=== PATIENT | male | born 1950 | race African-American/Black ===

== ENCOUNTER 2017-01-03 03:22 | Inpatient (IN) ==
[2017-01-03 04:20] LABS: BASO% 0.5 % (0.0-0.8); EOS# 0.06 X1000 (0.0-0.7); EOS% 0.7 % (0.0-10.0); HEMOGLOBIN 4.9 g/dL (14.0-18.0); IMM GRAN# 0.03 X1000 (0.0-0.04); IMM GRAN% 0.4 % (0.0-0.5); LYMPH# 1.42 X1000 (1.2-3.4); LYMPH% 16.9 % (20.5-51.1); MANUAL DIFF NEEDED? NO; MCH 29.7 PG (27-31); MCHC 32.7 g/dL (33-37); MCV 90.9 FL (81-99); MONO% 7.1 % (1.7-9.3); MPV 10.4 FL (7.4-10.4); NEUT% 74.4 % (42.2-75.2); PLT 166 X1000 (130-400); RBC 1.65 XMIL (4.7-6.1); RETIC% 5.38 % (0.8-2.1); RETIC-HE 36.6 PG (28.2-36.6)
--- NOTE | 2017-01-03 04:39 | PROVIDER DOCUMENTATION ---
HPI-General Adult - General Chief Complaint: Weakness Stated Complaint: CHEST PAIN Time Seen by Provider: 01/03/17 04:04 Source: patient - History of Present Illness -Gen Adult Nature of Presenting Problems: 66 yo AAM with know sickle cell trait came to ER due to profoound weakness such that he is SOB even going to from bed to bathroom. He has had some coffee ground emesis a few weeks ago and some dark but not black stoolsas well. He has a cousin with sickle thal. Location of Pain/Injury: reports: none Quality of Pain: reports: none Onset/Duration: reports: other (see HPI) Timing: reports: still present Context/Activities at Onset: reports: light activity Modifying Factors: improves with: nothing Associated Symptoms: reports: denies symptoms Similar Symptoms Previously?: No Recently seen or treated by another doctor?: No - Sickle Cell Pain Related Context Sickle Cell Pain Location: reports: none Review of Systems - Adult - REVIEW OF SYSTEMS - ADULT Constitutional: reports: fatique Eyes: reports: no symptoms reported Ears, Nose, Mouth & Throat: reports: no symptoms reported Cardiovascular: reports: see HPI, heart murmur Respiratory: reports: see HPI Gastrointestinal: denies: abdominal pain, hematemesis, constipation, diarrhea, difficulty swallowing, frequent heartburn, rectal bleeding Genitourinary: reports: no symptoms reported Musculoskeletal: reports: no symptoms reported Integumentary: reports: see HPI Neurological: reports: no symptoms reported Psychiatric: reports: no symptoms reported Endocrine: reports: no symptoms reported Hematologic/Lymphatic: reports: no symptoms reported Allergic/Immunologic: reports: no symptoms reported Past History - Adult - PAST MEDICAL HISTORY-ADULT Review of Records: reports: Old Records Reviewed, Nursing Assessment Review Major Childhood Illnesses: reports: other (sickle trait) Cardiovascular: reports: arrhythmia, other (cardiac ablation) Respiratory: reports: denies history Gastrointestinal: reports: denies history Genitourinary: reports: denies history Neurological: reports: denies history Endocrine/Immune: reports: other (Insulinoma resected many years ago) Sickle Cell Genotype:: SThal - PRIOR SURGERIES/PROCEDURES Surgical/Procedure History: reports: colonoscopy - IMMUNIZATION STATUS Childhood Immunizations: UTD - FAMILY HISTORY Family History: reviewed, not pertinent - SOCIAL HISTORY Smoking: non-smoker Occupation: Physician Physical Exam-General - PHYSICAL EXAM-ADULT Initial Vital Signs Reviewed: Yes - CONSTITUTIONAL General Appearance: alert, no apparent distress, anxious, other (profoundly pale ) - EYES Eyes: PERRL/EOMI, pink conjunctivae - HEAD, EARS, NOSE, MOUTH & THROAT HENMT: normocephalic/atraumatic, moist mucous membranes, normal ENT inspection - NECK Neck: non-tender, full range of motion - RESPIRATORY Respiratory: chest non-tender, lungs clear, normal breath sounds - CARDIOVASCULAR Cardiovascular: normal peripheral pulses, regular rate, rhythm, systolic murmur - GASTROINTESTINAL (ABDOMEN) Abdominal Exam: normal bowel sounds, non tender - LYMPHATIC Lymphatic: no adenopathy - MUSCULOSKELETAL Back Exam: no CVA tenderness Extremity: normal range of motion, non-tender - SKIN Integumentary: normal color, normal turgor - NEUROLOGIC Neurologic: grossly normal - PSYCHIATRIC Psych/Mental Status: normal mood/affect Progress - PLAN OF CARE/RESULTS Progress/Plan/Lab Results: Vital Signs - 8 hr 01/03/17 03:27 01/03/17 03:54 Temperature 98 F Pulse Rate 81 88 Respiratory Rate 18 14 Blood Pressure 153/61 147/73 O2 Sat by Pulse Oximetry 100 96 Laboratory Results - last 24 hr 01/03/17 03:50 WBC 8.41 RBC 1.65 L Hgb 4.9 L* Hct 15.0 L MCV 90.9 MCH 29.7 MCHC 32.7 L RDW Std Deviation 13.5 Plt Count 166 MPV 10.4 Immature Gran % (Auto) 0.4 Neut % (Auto) 74.4 Lymph % (Auto) 16.9 L Motley % (Auto) 7.1 Eos % (Auto) 0.7 Baso % (Auto) 0.5 Immature Gran # (Auto) 0.03 Neut # (Auto) 6.26 Lymph # (Auto) 1.42 Motley # (Auto) 0.60 H Eos # (Auto) 0.06 Baso # (Auto) 0.04 Percent Retic 5.38 H Retic Hgb Equivalent 36.6 Orders Category Date Time Status Transfuse .Give-Transfuse Care 01/03/17 04:25 Active CBC WITH ELECTRONIC DIFF [HEME] Stat Lab 01/03/17 03:50 Completed CK PROFILE [SP CHEM] Stat Lab 01/03/17 03:50 Received COMPREHENSIVE METABOLIC PANEL [CHEM] Stat Lab 01/03/17 03:50 Received FERRITIN Stat Lab 01/03/17 03:50 Received FOLATE Stat Lab 01/03/17 03:50 Received HEMOGLOBIN ELECTROPHORESIS [MOORE] Stat Lab 01/03/17 03:50 Received LRPC (RED CELLS) [BBK] Stat Lab 01/03/17 03:50 Received RETIC COUNT [HEME] Stat Lab 01/03/17 03:50 Completed TROPONIN T Stat Lab 01/03/17 03:50 Received TYPE & SCREEN [BBK] Stat Lab 01/03/17 03:50 Received UIBC W TOTAL IRON [CHEM] Stat Lab 01/03/17 03:50 Received VITAMIN B12 Stat Lab 01/03/17 03:50 Received EKG [EKG] Stat Ther 01/03/17 03:23 Ordered Result Diagrams: 01/03/17 03:50 01/03/17 03:50 - XRAY 1 XRAY: Left XRAY Study: Hip Impression: Abnormal (fem nk fx) - CONSULTS/PCP/HOSPITALIST Notification #1 *Consult/PCP/Hospitalist*: Dr srivastava Time Discussed: 05:17 Consult Disposition: Will see in ED, Admit Departure - Departure Date of Disposition Decision: 01/03/17 Time of Disposition Decision: 05:18 DIAGNOSIS: Anemia Qualifiers: Anemia type: iron deficiency Iron deficiency anemia type: chronic blood loss Qualified Code(s): D50.0 - Iron deficiency anemia secondary to blood loss ( chronic) Disposition: ADMITTED INPATIENT 09 Certified Medical Emergency: Emergent Condition: Good Referrals and Follow-Ups: None,PCP [Primary Care Provider] - - Critical Care Note This patient required my direct & personal management of CC.: No Attestation - Physician/ MARIA ESTHER Attestation Patient care was provided by Advanced Practice Provider:: No The physician spent face to face time with patient:: Yes Advanced Practice Provider documentation review:: Supervising physician onsite and consulted in the evaluation and care of this patient. The physician did have a face to face encounter with the patient.
[2017-01-03 04:52] LABS: IRON SATURATION 29 %; TIBC 210 ug/dL; TOTAL IRON 60 ug/dL (53-167); UNBOUND IRON 150 ug/dL (112-346)
[2017-01-03 04:54] LABS: AGAP 11; ALKALINE PHOSPHATASE 34 U/L (32-122); BUN 58 mg/dL (8-22); CHLORIDE 105 mmol/L (98-107); CK PROFILE 59 U/L (24-204); COSMO 303; GOT 9 U/L (10-34); GPT 8 U/L (10-44); POTASSIUM 3.6 mmol/L (3.5-5.1); SODIUM 142 mmol/L (136-145); TCO2 26 mmol/L (25-35); TOTAL BILIRUBIN 0.15 mg/dL (0.20-1.00); TOTAL PROTEIN 5.6 g/dL (6.3-8.3)
[2017-01-03] MEDS ORDERED: NS 1,000 ML ONE (05:06)
[2017-01-03] MEDS ORDERED: SODIUM CHLORIDE 0.9% INJ ONE (05:52)
[2017-01-03] MEDS ORDERED: PROTONIX IV ONE (05:52)
[2017-01-03] MEDS ORDERED: TYLENOL PO ONE (06:01)
[2017-01-03 06:13] LABS: INR 1.06; PROTIME 11.2 Seconds (9.2-11.7)
[2017-01-03 06:30] LABS: PTT 18.7 Seconds (22.0-36.0)
--- NOTE | 2017-01-03 07:06 | EKG Report ---
Test Performed on : 01/03/2017 03:40:30 AM Test Reason : weakness Blood Pressure : / mmHG Vent. Rate : 083 BPM Atrial Rate : 083 BPM P-R Int : 168 ms QRS Dur : 090 ms QT Int : 414 ms P-R-T Axes : 029 -20 050 degrees QTc Int : 486 ms Normal sinus rhythm. Minimal voltage criteria for LVH, may be normal variant Nonspecific ST abnormality Prolonged QT Abnormal ECG No previous ECGs available Unconfirmed Result
[2017-01-03] MEDS ORDERED: ZOFRAN IV PRN (07:36)
[2017-01-03] MEDS: HUMALOG SUBQ SCH ×3 (08:19→16:25)
[2017-01-03] MEDS: TRANDATE PO SCH ×2 (08:30→22:41)
--- NOTE | 2017-01-03 08:33 | HISTORY AND PHYSICAL ---
PRIMARY CARE PROVIDER: Dr. Badillo in [place]. CHIEF COMPLAINT: Weakness. 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 He also reports that he has had a pale appearance to his skin as well. He reports that initially 6 weeks ago, he did notice a few episodes of dark stools, though has not had any since that time. He states that yesterday, he did have 1 episode of vomiting for which had a coffee-ground appearance. The patient denies any abdominal pain. He also denies any previous history of any gastrointestinal bleeding or gastrointestinal complications such as ulcers or diverticulitis. He states that though he has not taken any [id number] medications, he does take meloxicam 10 mg daily, and has done so for several years as well as a 325 mg aspirin. He denies any dizziness, lightheadedness, headaches, chest pain, shortness of breath, abdominal pain, diarrhea, dysuria, or urinary frequency. He also denies any fever, body aches, or chills, and denies any increased swelling in his legs, but does report that he wears compression stockings daily to help with this. Upon evaluation in the ER, the patient was found to be very anemic with a hemoglobin of 4.9 and hematocrit of 15. He was also found to have a slightly elevated creatinine of 1.4. Though we do not have any previous labs to compare this, the patient states that his creatinine is not normally elevated and does not have any previous history of kidney disease. At this time , the patient will be admitted for further treatment and evaluation of his anemia and likely upper gastrointestinal bleeding. REVIEW OF SYSTEMS: A 12-point review of systems was conducted with the patient and all were negative except for pertinent positives mentioned above HPI. PAST MEDICAL HISTORY: 1. 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 2. CVA in 1998, with some residual deficits of balance problems. 3. Hypertension. 4. Sickle cell trait. 5. Spinal stenosis. 6. Diabetes mellitus type 2. 7. History of insulinoma, status post resection. PAST SURGICAL HISTORY: 1. Left total knee replacement. 2. Tonsillectomy as a child. 3. History of insulinoma status post resection. 4. History of 2 abdominal surgeries related to some complications from his previous insulinoma resection. 5. Low back surgery at L4-L5 for spondylosis. SOCIAL HISTORY: The patient is a former smoker, stating that he did formally smoke cigars. He denies any alcohol or illicit drug use. He is . His was at bedside at the time of examination. 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 FAMILY HISTORY: Positive for his mother passing away secondary to rectal cancer. His father had a history of colon cancer and stroke. ALLERGIES: The patient reports allergies to alcohol surgical prep. HOME MEDICATIONS: 1. Telmisartan 80 mg p.o. daily. 2. Singulair 10 mg p.o. daily. 3. Metformin extended release 500 mg 2 p.o. daily. 4. Labetalol 100 mg p.o. b.i.d. 5. Hydrochlorothiazide 25 mg p.o. q.a.m. 6. Ginkgo biloba leaf extract 60 mg p.o. q.a.m. 7. Cartia XT 240 mg p.o. b.i.d. 8. Aspirin 325 mg p.o. q.a.m. DIAGNOSTIC DATA: White blood cell count 8.4, hemoglobin 4.9, hematocrit 15, platelet count is 166,000. PT 11.2, INR 1.06, PTT is 18.7. Sodium 142, potassium 3.6, chloride 105, bicarb 26, BUN is 58, creatinine 1.4 with a GFR greater than 60, glucose 164, calcium 8. Liver function tests were within normal limits. CK 59, troponin less than 0.01. Albumin is 3. EKG showed normal sinus rhythm with a nonspecific ST abnormality and prolonged Q-T at a rate of 83 with a QTc of 486. PHYSICAL EXAMINATION: VITAL SIGNS: Temperature 99.5, heart rate 75, respirations 14, blood pressure 158/77, oxygen saturation 100% nasal cannula at 2 L. 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 He was in no acute distress. He was awake, alert, and able to answer all questions appropriately. He stated that other than feeling weak, he is doing well at this time. HEENT: Head is atraumatic, normocephalic. Pupils are equal, round, and reactive to light, were 3 mm bilaterally and brisk. Sclerae are white. No lesions noted. Subconjunctivae are pale. Oral mucosa is moist. Oropharynx is clear. NECK: Supple. Trachea midline. No carotid bruits noted upon auscultation bilaterally. CARDIOVASCULAR: Patient has normal S1, S2. He also does have a probable 2/6 murmur noted as well. He has a regular heart rate and rhythm. PULMONARY: Patient has symmetrical chest expansion bilaterally. Lung sounds are clear to auscultation bilateral full rolle. ABDOMEN: Soft, nontender, nondistended. Bowel sounds are present in all 4 quadrants. EXTREMITIES: No cyanosis, clubbing, or edema noted. Pulse, motor, and sensory is intact in all extremities. Pedal pulses are 3+ bilaterally. INTEGUMENTARY: Patient's skin is pale, dry, and intact. No lesions or sores noted. NEUROLOGICAL: Patient is alert and oriented x4. Cranial nerves 2-12 are grossly intact. ASSESSMENT AND PLAN: 1. Upper gastrointestinal bleed. We suspect this is upper gastrointestinal bleed given that the patient has previous reported dark stools as well as reported vomiting episode of coffee- grounds emesis. The patient did report prescription medication use of meloxicam and aspirin. He was anemic with a hemoglobin of 4.9 and hematocrit of 15. At this time we have ordered for transfusion of 3 units of packed red blood cells. He has been placed on Protonix 40 mg IV q.12 hours. At this time, he does not have any active vomiting or bowel movements. The patient did request to have Dr. Cardenas for his Gastroenterology consultation if possible. Though stated that if Dr. Cardenas was not able to come in, that he would like to have Dr. Varma in place of him. The patient is hemodynamically stable. Heart rate and blood pressure are within normal limits. At this time, we will await evaluation and further recommendations from Gastroenterology and we will continue to follow closely. 2. Anemia. This is likely secondary to his gastrointestinal bleeding. As previously mentioned, we have ordered for blood transfusions, and we will continue to follow with serial hemoglobin and hematocrit. 3. Acute kidney injury. This is likely secondary to some volume depletion. We will continue with blood transfusions as well as gentle fluid resuscitation with normal saline at 100 mL/h and continue to follow. We will avoid nephrotoxic medications and renally dose medications if necessary. 4. Hypertension. The patient's blood pressure is only mildly elevated. We will monitor this at this time and only implement his regularly prescribed antihypertensive as necessary. We will closely monitor. 5. Diabetes mellitus type 2. Given the patient's acute kidney injury, we will hold his metformin. We have placed him on a sliding scale lispro insulin. He will be placed on the medical floor with telemetry. He will have vital signs q.4 hours. We will closely monitor his hemoglobin and hematocrit levels. He will be N.P.O. DVT prophylaxis provided with SCDs. Further orders and recommendations pending hospital course , diagnostic studies, and physician evaluation. Dictated by LIDIA Garcia for Francoise Riggs MD I did an independent assessment,exam and review of lab work and agree with above findings. BP meds to be used only if SBP>150 to prevent hypotension in the face of bleeding. Other than being pale and having mild epigastric tenderness. I did not find any other major abnormalities on exam. cc: Francoise Riggs MD MTDD
--- NOTE | 2017-01-03 10:25 | PROGRESS NOTE ---
DATE: 01/03/2017 SUBJECTIVE: Patient is resting comfortably in bed. Family members at the bedside. He is not complaining of any abdominal pain, nausea or vomiting. At this moment he is receiving the third unit of PRBC, and he is tolerating that well. He came in with a hemoglobin of 4.9 and, as per the patient, he had a few weeks ago some black stools. Yesterday he had a coffee-grounds emesis. The plan is to get gastroenterology on board and hopefully scope this patient today or tomorrow. If the patient is going to be scoped tomorrow, will start this patient on a liquid diet. Also I will ask for previous records from his primary doctor. He came in with a creatinine of 1.4, and he states that he does not have any previous kidney injury. So, probably this is acute but, like I said, I do not have previous records. OBJECTIVE: Vital Signs: Temperature 99.8 degrees, pulse 60, respiratory rate 16, blood pressure 132/58, oxygen saturation 100% on 2 L of nasal cannula. HEENT: Head normocephalic. No trauma. PERRLA. Neck: Supple. No JVD. No masses. Central trachea. Chest: Clear to auscultation. No wheezing. No rales. Cardiovascular: RRR. Systolic murmur. Abdomen: Soft, protuberant, nontender nondistended. No hepatosplenomegaly. Extremities: No edema. No clubbing. No cyanosis. Neurological examination: The patient is alert and oriented x3. No focal deficits. LABORATORY: WBC 8.4, hemoglobin 4.9, hematocrit 15, platelet 166. Sodium 142, potassium 3.6, chloride 105, bicarbonate 26, BUN 58, creatinine 1.4, glucose 164, calcium 8 and albumin 3. ASSESSMENT AND PLAN: 1. Upper gastrointestinal bleed. We called Dr. Cardenas, who has apparently been his gastroenterology doctor, but he is not going to be able to see him. So, Dr. Varma is on board, and she will evaluate this patient. For now, we will continue with blood transfusion. I am not quite sure if this patient is going to be scoped today or tomorrow, so we will call Dr. Varma. In case of this patient being scoped tomorrow ,I will start this patient on a liquid diet and then on nothing by mouth after midnight. 2. Anemia likely secondary to blood loss. Continue with blood transfusion. At this moment he is getting the third unit of packed red blood cells. 3. Likely acute kidney injury. This is likely secondary to volume depletion. I do believe that after the blood transfusion and gentle fluid resuscitation, he will be better. I will ask for previous records, and we will avoid nephrotoxic medications. 4. Hypertension. I have restarted his labetalol. I am going to hold for now his hydrochlorothiazide and telmisartan given his kidney injury. He is also on diltiazem; I will restart this medication if the blood pressure goes up. Right now it has been around 150 and 130. As per the patient, his blood pressure is around that level. 5. Questionable diabetes. As per the patient, his hemoglobin A1c is 5.2, so this patient does not have diabetes. He decided to start taking metformin at home by himself. cc: George Rosas MD
[2017-01-03] MEDS: CARDIZEM CD PO SCH ×2 (10:33→22:42)
[2017-01-03] MEDS: NS 1,000 ML IV SCH ×2 (11:15→22:42)
[2017-01-03] MEDS ORDERED: TYLENOL PO PRN (12:00)
[2017-01-03 12:44] LABS: BASO% 0.3 % (0.0-0.8); EOS# 0.02 X1000 (0.0-0.7); EOS% 0.2 % (0.0-10.0); HEMATOCRIT 21.2 % (42.0-52.0); HEMOGLOBIN 7.1 g/dL (14.0-18.0); IMM GRAN# 0.03 X1000 (0.0-0.04); IMM GRAN% 0.3 % (0.0-0.5); MANUAL DIFF NEEDED? YES; MCH 29.7 PG (27-31); MCHC 33.5 g/dL (33-37); MCV 88.7 FL (81-99); MONO# 0.91 X1000 (0.11-0.59); MPV 11.3 FL (7.4-10.4); NEUT% 67.2 % (42.2-75.2); PLT 124 X1000 (130-400); RBC 2.39 XMIL (4.7-6.1)
[2017-01-03 12:53] LABS: INR 1.04; PROTIME 10.9 Seconds (9.2-11.7)
[2017-01-03 12:55] LABS: PTT 18.2 Seconds (22.0-36.0)
[2017-01-03 13:08] LABS: LYMPHS 34 % (21-51); MONO 2 % (1-9)
[2017-01-03 13:59] LABS: AGAP 12; BUN 53 mg/dL (8-22); CALCIUM 7.9 mg/dL (8.8-10.2); CHLORIDE 104 mmol/L (98-107); COSMO 299; POTASSIUM 3.2 mmol/L (3.5-5.1); SODIUM 142 mmol/L (136-145); TCO2 26 mmol/L (25-35)
[2017-01-03] MEDS ORDERED: DIPRIVAN 1% ONE (16:50)
[2017-01-03] MEDS ORDERED: FENTANYL ONE (16:53)
[2017-01-03] MEDS ORDERED: PROTONIX 80 MG in NS 80 ML IV ONE (17:59)
[2017-01-03] MEDS ORDERED: PROTONIX IV SCH (18:00)
[2017-01-03 18:12] LABS: HEMOGLOBIN 8.1 g/dL (14.0-18.0)
[2017-01-03] MEDS: PROTONIX 80 MG in NS 80 ML IV SCH (22:41)
[2017-01-03] MEDS: CARAFATE LIQUID PO SCH (22:41)
[2017-01-04 01:29] LABS: HEMATOCRIT 21.6 % (42.0-52.0); HEMOGLOBIN 7.2 g/dL (14.0-18.0)
[2017-01-04] MEDS: CARAFATE LIQUID PO SCH ×4 (01:48→21:22)
[2017-01-04] MEDS: PROTONIX 80 MG in NS 80 ML IV SCH ×4 (05:33→21:29)
--- NOTE | 2017-01-04 05:53 | CONSULTATION ---
DATE OF CONSULTATION: 01/03/2017 REFERRING PHYSICIAN: George Rosas MD PRIMARY CARE PHYSICIAN: Dr. Archie Badillo MD INDICATION FOR CONSULTATION: 1. Melena. 2. Coffee-ground emesis. 3. Hemoglobin of 4.9. 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 Approximately 6 weeks prior to admission, he had 4 days of black stool but now says that resolved. Approximately 1 day prior to admission, he had an episode of coffee-grounds emesis. Because of the progressive weakness, he presented to the emergency room. He admits that he is on meloxicam 10 mg per day and aspirin 325 mg daily. He denies taking other over the counter medications and denies the use of other NSAIDs. Other than the fatigue, he reports no other symptoms. He does wear daily compression stockings due to lower extremity edema, but states that that has been chronic. In the emergency room, he was found to have a hemoglobin of 4.9 with hematocrit of 15. He was also noted to have a creatinine of 1.4. Because of his GI bleeding and NSAID use, we are asked to participate in his care. It should be noted that his mother from rectal cancer and his father from colon cancer. His last colonoscopy was more than 5 years ago. PAST MEDICAL HISTORY: 1. Cardiac ablation for Parkinson white syndrome. 2. CVA in 1998 with residual balance difficulty. 3. Hypertension. 4. Sickle-cell trait. 5. Spinal stenosis. 6. Diabetes 2. 7. History of insulinoma status post resection. PAST SURGICAL HISTORY: 1. Left total knee replacement. 2. Tonsillectomy. 3. Insulinoma resection with the gastrojejunostomy anastomosis. 4. Two subsequent abdominal surgeries related to complications from his insulinoma resection. 5. Low back surgery at L4-L5 for spondylosis. SOCIAL HISTORY: Remarkable in that he is a former smoker. He previously smoked cigars. He denies alcohol or illicit drug use. 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 FAMILY HISTORY: Remarkable in that his mother from rectal cancer. His father had colon cancer and stroke. MEDICATION ALLERGIES: Alcohol surgical prep. HOME MEDICATIONS: 1. Telmisartan. 2. Singulair. 3. Metformin. 4. Labetalol. 5. Hydrochlorothiazide. 6. Gingko biloba. 7. Cardia XT. 8. Aspirin 325 mg daily. 9. Meloxicam 10 mg daily. REVIEW OF SYSTEMS: Remarkable for lower extremity numbness and tingling when he works for long periods of time. He is currently scheduled to have spine surgery on Saturday at [place]. PHYSICAL EXAMINATION: General: He is in no acute distress. Vital Signs: His blood pressure is 132/58, pulse is 60, respirations 16, and temperature of 99.8 degrees. HEENT: Negative for jaundice. His oropharyngeal mucosa membranes are unremarkable. His conjunctivae are pale. Neck: Supple. Pulmonary: Lungs are clear to auscultation with normal expiratory effort. Cardiovascular: Reveals regular rate and rhythm with a 2-3/6 systolic murmur in the anterior left substernal border. Abdomen: Reveals normoactive bowel sounds. The abdomen is soft, nontender with no rebound or guarding. Extremities: Bilaterally are negative for cyanosis, clubbing, or edema. He has normal pedal pulses. Skin: Pale but dry and intact. Neurologic: There is no focal deficit. OBJECTIVE DATA: Reveals an admission hemoglobin of 4.9 with hematocrit of 15.0 and a white count of 8.41. He had 166,000 platelets. Post 3 units of packed red blood cells, his hemoglobin is 7.1 with hematocrit of 21.2 and a white count of 9.08. He has 124,000 platelets. PT is 10.9 with an INR of 1.04 and a PTT of 18.2. His sodium is 142, potassium 3.6, chloride 105, CO2 26, BUN 58, creatinine 1.4 with a glucose of 164. Calcium is 8, total bilirubin 0.15, AST 9, ALT 8, alkaline phosphatase 34, CK 59. Troponin less than 0.010. Total protein 5.6 and albumin 3.0. His iron is 60 but his ferritin is 14. His vitamin B12 is 837 with a folic acid of 10.8. IMPRESSION: 1. Coffee-ground emesis. 2. Melena. 3. NSAIDs use. 4. Family history of colon cancer. 5. Family history of rectal cancer. RECOMMENDATIONS: 1. After receiving 3 units of packed red blood cells, his hemoglobin is 7.1, with hematocrit of 21.2. Prior to endoscopic intervention, I would transfuse one additional unit of blood and check a repeat CBC following the transfusion. 2. We will place the patient on the schedule for an EGD today. Please keep him NPO. 3. If the EGD is negative or the patient does not correct post transfusion, he will require a colonoscopy this admission in light of his parent's history of colon and rectal cancer. That decision will be based on his response to blood transfusion as well as his endoscopic findings. 4. Patient is currently on Protonix 40 mg IV q.12 hours. I would transition his drug therapy to a Protonix drip for 72 hours. 5. Postprocedure, I anticipate that he will need Carafate 1 g 4 times a day. I will finalize the decision once we performed endoscopy. 6. The patient is scheduled to undergo surgery at [place] on Saturday. I strongly recommend that he postpone his surgery until he has recovered from his current GI bleeding unless his surgeon feels that the surgery is imperative to prevent permanent neurologic damage. 7. Additional recommendations to follow based on his endoscopic findings. 8. Consent was discussed and multiple questions were answered. cc: MD Dr. Archie Evans MD Omar J. Sosa-Chirinos, MD
--- NOTE | 2017-01-04 05:53 | OPERATIVE NOTE ---
PROCEDURE DATE: 01/03/2017 REFERRING PHYSICIAN: George Rosas MD PRIMARY CARE PROVIDER: Archie Badillo MD INDICATIONS FOR PROCEDURE: 1. GI bleed. 2. Coffee-ground emesis. 3. Melena. 4. NSAID use. 5. Family history of rectal cancer. 6. Family history of colon cancer. PROCEDURE PERFORMED: 1. Esophagogastroduodenoscopy with control of bleeding. 2. Esophagogastroduodenoscopy with biopsy. CONSENT: Informed consent was obtained from the patient prior to the procedure. The risks, benefits, and alternatives were discussed with the patient, his and their daughter. MEDICATION: The patient received monitored anesthesia care. PERFORMING PHYSICIAN: Faiza Varma MD ASSISTANTS: 1. ST Renny 2. Cassandra Zapien RN 3. Arielle Kapoor CRNA 4. Abner Benz MD (anesthesia) COMPLICATIONS: There were no complications. ESTIMATED BLOOD LOSS: Less than 1-2 mL. SPECIMENS REMOVED: 1. Duodenal biopsy. 2. Gastric polyp biopsy. 3. Gastric mucosa biopsy. FINDINGS: After sedation was achieved, the upper endoscope was inserted to the mid jejunum. The hypopharynx appeared endoscopically normal. The tubular esophagus was normal except there were prominent esophageal veins. The GE junction appeared irregular at 40 cm. There was a small tongue of salmon-colored mucosa that was less than 1 cm in size. There were also streaks of erosions that were less than 0.5 cm consistent with grade A erosive esophagitis. Upon intubating the gastric lumen, there was greater than 300 mL of retained bilious gastric secretions. Post evacuation, there was diffuse erosive gastritis but no active bleeding. Biopsies were taken of the gastric mucosa. In the mid gastric body, there was a gastrojejunostomy with a 10-15 mm anastomotic ulcer on the jejunal surface. Although it was not actively bleeding at the time of insertion, with insufflation, there was oozing from the edges as well as from the center. Cautery was performed with the black wire and hemostasis was achieved. In the [place] stomach, the antrum was in continuity with the remainder of the stomach. There were pre-pyloric polyps that ranged in size from 5-9 mm. Biopsies were taken. The pylorus appeared endoscopically normal. In the 1st and 2nd portion of the duodenum, the mucosa appeared normal. Biopsies were taken. The scope was then retracted into the gastric lumen and retroflexed view was performed. Again there was greater than 300 mL of fluid that was evacuated. Other than the aforementioned erosive gastritis, there were no other findings. After the exam was complete, the lumen was decompressed and the scope was removed without incident. The scope was then inserted into the gastrojejunostomy. The efferent and afferent lumen of the jejunum appeared endoscopically normal after approximately 10 cm from the anastomotic ulcer. There were no other lesions found. The lumen was decompressed and the scope was removed without incident. IMPRESSION: 1. Prominent esophageal veins. 2. Irregular GE junction at 40 cm. 3. Grade a erosive esophagitis. 4. Gastric retention of secretions with greater than 300 mL of fluid in the fundus. 5. Erosive gastritis status post biopsy. 6. Gastrojejunostomy in the mid gastric body. 7. A 12-15 mm anastomotic ulcer on the jejunal surface with active oozing upon insufflation. The ulcer was cauterized with hemostasis. 8. Normal efferent and afferent jejunal surfaces. 9. Antral polyps times greater than 10 status post biopsy. 10. Normal pylorus. 11. Normal 1st and 2nd portion of the duodenum, status post biopsy. RECOMMENDATION: 1. Await biopsy results. 2. Begin Protonix drip for 72 hours. 3. Begin Carafate suspension 1 g p.o. 4 times a day. 4. I will schedule a gastric emptying study to assess the functional status of his stomach. 5. I will check an abdominal ultrasound to assess the prominent veins and assess for cirrhosis. 6. The patient will need outpatient colonoscopy if he remains hemodynamically stable. However, if his hemoglobin drops or he does not correct appropriately to blood transfusion, it is reasonable to perform a colonoscopy prior to discharge. 7. Given that gastrojejunal ulcer is greater than 10 mm, I will repeat an EGD in 12 weeks to allow for biopsying of the ulcer base and to biopsy the distal esophagus to screen for Zhou's esophagus. 8. I recommend that his surgery be postponed at [place] in the absence of urgent indication. He will discuss this with his surgeon in the morning. cc: MD Archie Evans MD Omar J. Sosa-Chirinos, MD
[2017-01-04 07:34] LABS: MANUAL DIFF NEEDED? NO
[2017-01-04 07:47] LABS: BASO% 0.3 % (0.0-0.8); EOS# 0.06 X1000 (0.0-0.7); EOS% 0.7 % (0.0-10.0); IMM GRAN# 0.02 X1000 (0.0-0.04); IMM GRAN% 0.2 % (0.0-0.5); LYMPH# 1.83 X1000 (1.2-3.4); MCH 30.2 PG (27-31); MCHC 33.3 g/dL (33-37); MCV 90.6 FL (81-99); MONO# 0.91 X1000 (0.11-0.59); MONO% 9.9 % (1.7-9.3); NEUT% 68.9 % (42.2-75.2); PLT 143 X1000 (130-400); RBC 2.65 XMIL (4.7-6.1)
[2017-01-04 07:53] LABS: AGAP 12; ALBUMIN 3.3 g/dL (3.5-5.0); ALKALINE PHOSPHATASE 40 U/L (32-122); BUN 32 mg/dL (8-22); CALCIUM 7.9 mg/dL (8.8-10.2); CHLORIDE 106 mmol/L (98-107); COSMO 294; GOT 27 U/L (10-34); GPT 11 U/L (10-44); POTASSIUM 3.2 mmol/L (3.5-5.1); SODIUM 143 mmol/L (136-145); TCO2 25 mmol/L (25-35); TOTAL BILIRUBIN 0.27 mg/dL (0.20-1.00); TOTAL PROTEIN 5.6 g/dL (6.3-8.3)
[2017-01-04] MEDS ORDERED: KLOR-CON PO ONE (07:58)
[2017-01-04 08:29] LABS: HEMOGLOBIN A1C 4.7 % (4.8-6.0)
[2017-01-04] MEDS ORDERED: HYDROCHLOROTHIAZIDE PO SCH (09:00)
--- NOTE | 2017-01-04 09:39 | Diag Imaging Result Doc PS360 ---
GASTRIC EMPTYING - 01/04/2017 INDICATION: nausea with vomiting TECHNIQUE: 580 uCi of labeled solid food was ingested COMPARISON: None FINDINGS: The T1 half for gastric emptying is 138 minutes. This is mildly delayed. IMPRESSION: Mildly delayed gastric emptying rate compatible with gastroparesis. Electronically signed by Fercho Honeycutt 01/04/2017 9:37 AM
--- NOTE | 2017-01-04 10:31 | Diag Imaging Result Doc PS360 ---
EXAM: US ABDOMEN-COMPLETE HISTORY: prominent veins on EGD, GI bleed, h/o insulinoma TECHNIQUE: Abdominal ultrasound COMMENT: The visualized portions of the head and body the pancreas are within normal limits. The visualized portions of the aorta and inferior vena cava are normal in appearance. Very poor detail is demonstrated in the liver due to the patient's body habitus. The gallbladder contains some echoes with shadowing but is nontender. There is no evidence of biliary dilatation the common bile duct measuring 4 mm. The liver is generally hyperechoic. There is a cyst present in the posterior left hepatic lobe measuring 1.7 cm in greatest dimension. The spleen is not enlarged. The kidneys are without evidence of hydronephrosis. There is antegrade flow in the portal vein. There is a 2.7 cm cyst in the upper pole of the left kidney. No abnormal fluid collections are demonstrated. IMPRESSION: 1. Hepatic steatosis. 2. Cholelithiasis without evidence of cholecystitis. Electronically signed by Davonte Muniz 01/04/2017 10:28 AM
[2017-01-04] MEDS: MICARDIS PO SCH (10:33)
[2017-01-04] MEDS: CARDIZEM CD PO SCH ×2 (10:33→21:22)
[2017-01-04] MEDS: SINGULAIR PO SCH (10:33)
[2017-01-04] MEDS: TRANDATE PO SCH ×2 (10:33→21:22)
[2017-01-04] MEDS: PATIENT'S OWN MED PO SCH (10:36)
--- NOTE | 2017-01-04 16:05 | PROGRESS NOTE ---
DATE: 01/04/2017 SUBJECTIVE: This patient is resting comfortably in bed. Family members at the bedside. He is not complaining of abdominal pain, nausea or vomiting. He had an upper endoscopy done yesterday by Dr. Varma. We will continue following her recommendations. I have restarted most of his home medications. OBJECTIVE: Vital Signs: Temperature 97.9 degrees, pulse 70, respiratory rate 18, blood pressure 121/47, O2 saturation 100% on 2 L of nasal cannula. HEENT: Head normocephalic. No trauma. PERRLA. Neck: Supple. No JVD. No masses. Central trachea. Chest: Clear to auscultation. No wheezing. No rales. Abdomen: Soft, protuberant, he has a big old scar without any lesion. Positive bowel sounds. No signs of peritoneal irritation. Extremities: No edema. No clubbing. No cyanosis. Neurologic: The patient is alert and oriented x3. No focal deficits. LABORATORY: WBC 9.1, hemoglobin 8, hematocrit 24, platelet 143,000, sodium 143, potassium 3.2, chloride 106, bicarbonate 25, BUN 32, creatinine 1.4, glucose 132, calcium 7.9, albumin 3.3. ASSESSMENT AND PLAN: 1. Upper gastrointestinal bleed. This patient had an endoscopy done yesterday that showed prominent esophageal veins, irregular gastroesophageal junction at 40 cm, grade A erosive esophagitis, gastric retention with secretion with greater than 300 mL of fluid in the fundus, erosive gastritis, gastrojejunostomy in the mid gastric body, an anastomotic ulcer of around 12-15 mm on the jejunal surface with active oozing upon insufflation. The ulcer was characterized with hemostasis. Antral polyps. Dr. Varma recommended to place this patient on Protonix drip for 72 hours. We started this patient also on Carafate. He has been scheduled for an abdominal ultrasound and gastric emptying study pending results. Because of his gastrojejunal ulcer greater than 1 cm this patient will need to repeat an EGD in 12 weeks. Will continue following her recommendations. 2. Anemia likely secondary to blood loss. Continue to monitor. Will transfuse as needed. 3. Chronic kidney disease. As per the patient his creatinine is around 1.3. 4. Hypertension. I have restarted his home medications. Blood pressure is under control. 5. Patient is taking metformin even though he does not have diabetes. Will monitor. cc: George Rosas MD
--- NOTE | 2017-01-04 20:28 | PROGRESS NOTE ---
DATE: 01/04/2017 SUBJECTIVE: The patient is feeling better today. Overnight, his hemoglobin trended downward. He reports black stool today. He has not had a screening colonoscopy in over 5 years and has a family history of both colon cancer and colon polyps. He denies chest pain, shortness of breath, nausea, and vomiting. He was found to have mild gastroparesis on gastric emptying study. OBJECTIVE: On examination, his blood pressure is 128/50, pulse 64, respirations 18, temperature of 97.8 degrees. HEENT is negative for jaundice. On pulmonary examination, his lungs are clear. The remainder of his examination was deferred. OBJECTIVE DATA: Hemoglobin of 8.0 with hematocrit of 24.0 and a white count of 9.17. He has 143,000 platelets. Serum chemistries reveal sodium 143, potassium 3.2, chloride 106, CO2 of 25, BUN 32, creatinine 1.4 with a glucose of 132. Calcium is 7.9. His total bilirubin is 0.27, AST 27, ALT 11, alkaline phosphatase 40, total protein 5.6, albumin 3.3. His hemoglobin A1c is 4.7. IMPRESSION: 1. GI bleed secondary to gastric ulcer. 2. Inadequate correction post-transfusion. 3. Melena. 4. Iron deficiency anemia. 5. Family history of colon cancer. 6. Family history of rectal cancer. RECOMMENDATIONS: 1. Over the weekend, I will continue to monitor his hemoglobin and hematocrit, and transfuse as indicated. 2. He should undergo a colonoscopy on Saturday as he did not correct his hemoglobin and continues to have evidence of GI bleeding. I suspect the black stools are related to old blood as he had GI bleeding at the time of admission. If his hemoglobin drops tremendously over the weekend, we are happy to perform a repeat EGD on Saturday. At this time, I plan to perform a colonoscopy alone. 3. The patient is encouraged to increase his protein intake as he has evidence of protein calorie malnutrition. 4. Continue Protonix 40 mg IV q.12 hours. 5. Continue Carafate 1 g q.[address] Boby Mcadams is supervisor scrap preparation for the weekend. Please feel free to contact him if you have any additional questions. cc: MD George Evans MD Willie Askew, MD
[2017-01-05] MEDS: PROTONIX 80 MG in NS 80 ML IV SCH ×4 (01:24→20:45)
[2017-01-05] MEDS: CARAFATE LIQUID PO SCH ×4 (01:47→20:45)
[2017-01-05 06:33] LABS: HEMATOCRIT 20.8 % (42.0-52.0); HEMOGLOBIN 6.9 g/dL (14.0-18.0)
[2017-01-05 06:58] LABS: AGAP 10; BUN 18 mg/dL (8-22); CALCIUM 7.5 mg/dL (8.8-10.2); CHLORIDE 107 mmol/L (98-107); COSMO 289; POTASSIUM 2.7 mmol/L (3.5-5.1); SODIUM 143 mmol/L (136-145); TCO2 26 mmol/L (25-35)
[2017-01-05] MEDS: MICARDIS PO SCH (10:22)
[2017-01-05] MEDS: SINGULAIR PO SCH (10:22)
[2017-01-05] MEDS: KLOR-CON PO SCH ×2 (10:22→20:45)
[2017-01-05] MEDS: CARDIZEM CD PO SCH ×2 (10:22→20:45)
[2017-01-05] MEDS: TRANDATE PO SCH ×2 (10:23→20:45)
[2017-01-05] MEDS: PATIENT'S OWN MED PO SCH (10:23)
--- NOTE | 2017-01-05 10:24 | PROGRESS NOTE ---
DATE: 01/05/2017 SUBJECTIVE: This patient is sitting on a chair. Family members at the bedside. He is not complaining of abdominal pain, nausea, or vomiting. He had upper endoscopy done [address] Varma and, hopefully, he will have a colonoscopy done next Saturday. Today, he has hypokalemia at 2.7 and his hemoglobin is still low at 6.9. He will get 1 unit of PRBC and I will replace his potassium. Also, I will stop the hydrochlorothiazide because this can be the cause of hypokalemia on this patient. OBJECTIVE: Vital Signs: Temperature 99.2 degrees, pulse 75, respiratory rate 16, blood pressure 142/61, oxygen saturation 98% on room air. HEENT: Head normocephalic. No trauma. PERRLA. Neck supple. No JVD. No masses. Central trachea. Chest clear to auscultation. No wheezing. No rales. Abdomen soft, protuberant. He has a big old scar without any lesion. Positive bowel sounds. No signs of peritoneal irritation. Extremities: No edema. No clubbing. No cyanosis. Neurological: The patient is alert and oriented x3. No focal deficits. LABORATORY: Hemoglobin 6.9, hematocrit 20.8. Sodium 143, potassium 2.7, chloride 107, bicarbonate 26. BUN 18, creatinine 1.2, glucose 129. Calcium 7.5. ASSESSMENT AND PLAN: 1. Upper gastrointestinal bleed. This patient had an upper endoscopy done 2 days ago that showed prominent esophageal veins, irregular gastroesophageal junction at 40 cm, also erosive esophagitis, gastric retention with secretion, erosive gastritis, gastrojejunostomy in the mid gastric body and anastomotic ulcer of around 12 to 5 mm on the jejunal surface with active oozing open insufflation. The ulcer was cauterized with hemostasis. Also, antral polyps. For now, we will continue following the recommendations of Dr. Varma. Like I mentioned before, probably this patient will be scoped again next Saturday. He will have a colonoscopy. 2. Anemia likely secondary to blood loss. His hemoglobin is still low at 6.9. I will transfuse this patient with 1 more unit of packed red blood cells. 3. Chronic kidney disease. As per the patient, his creatinine is around 1.3. Today, the creatinine is 1.2. 4. Hypokalemia. I will replace the potassium today and also I will stop his hydrochlorothiazide which can be the cause of hypokalemia. 5. Hypertension, stable. Continue with his medications, except for hydrochlorothiazide. 6. Patient is taking metformin even though he does not have diabetes. He will continue with this treatment at home. cc: George Rosas MD
[2017-01-05] MEDS ORDERED: NS 500 ML ONE (12:04)
--- NOTE | 2017-01-05 13:24 | PROGRESS NOTE ---
DATE: 01/05/2017 SUBJECTIVE: The patient was seen for Dr. Varma. The patient is resting comfortably. He has had one bowel movement today, although it was formed, but it was dark color. He did not have any melenic stool. He is tolerating his diet well. He is resting comfortably. He has been in and out of the bathroom on his own, and has not complained of any dizziness or lightheadedness. Denies any palpitation or chest pain. No other signs of bleeding. OBJECTIVE: Vitals: Vitals today show temperature 99 degrees Fahrenheit, pulse was 74 per minute, breathing at a rate of 18 per minute, and blood pressure was 142/59. HEENT: He has pale conjunctiva. Mouth, buccal mucosa moist. Throat is normal. Abdomen: Slightly distended, but soft and nontender. Bowel sounds are audible. No pedal edema noted. LABS: Labs were reviewed which showed hemoglobin today 6.9, which dropped from 8, and hematocrit has dropped from 24 yesterday to 20.8 today. His BUN is 18, creatinine is 1.2, which has normalized. IMPRESSION AND PLAN: Profound anemia, possibly occult GI bleed. He is scheduled for colonoscopy Saturday. He does not have any signs of active bleeding now requiring immediate attention or intervention. I would continue current management and he is scheduled to receive more packed RBCs. We will continue to recheck hemoglobin and hematocrit and transfuse if necessary and, again, he is scheduled to have colonoscopy with Dr. Varma on Saturday. cc: Boby Mcadams MD
[2017-01-05] MEDS ORDERED: NORCO-7.5 PO PRN (22:05)
[2017-01-06] MEDS: CARAFATE LIQUID PO SCH ×4 (03:05→21:09)
[2017-01-06] MEDS: PROTONIX 80 MG in NS 80 ML IV SCH ×4 (05:27→17:29)
[2017-01-06 06:49] LABS: HEMATOCRIT 25.3 % (42.0-52.0); HEMOGLOBIN 8.4 g/dL (14.0-18.0)
[2017-01-06 07:05] LABS: AGAP 15; BUN 12 mg/dL (8-22); CHLORIDE 106 mmol/L (98-107); COSMO 289; POTASSIUM 3.6 mmol/L (3.5-5.1); SODIUM 144 mmol/L (136-145); TCO2 23 mmol/L (25-35)
[2017-01-06] MEDS ORDERED: SOLU-MEDROL IV ONE (08:31)
[2017-01-06] MEDS: TRANDATE PO SCH ×2 (09:00→21:09)
[2017-01-06] MEDS: MICARDIS PO SCH (09:01)
[2017-01-06] MEDS: COLCRYS PO SCH ×2 (09:01→21:09)
[2017-01-06] MEDS: CARDIZEM CD PO SCH ×2 (09:01→21:09)
[2017-01-06] MEDS: SINGULAIR PO SCH (09:01)
[2017-01-06] MEDS: PATIENT'S OWN MED PO SCH (09:06)
--- NOTE | 2017-01-06 10:35 | PROGRESS NOTE ---
DATE: 01/06/2017 SUBJECTIVE: The patient today is complaining of severe left foot pain. Apparently, he has a past medical history of gout or pseudogout. I discussed the case with the director field services. I am not going to start any NSAIDs. I want to give him a 1 time dose of methylprednisolone and I will start this patient on colchicine. Today, he will receive the dose twice a day but tomorrow, probably I will put this patient on once a day treatment. OBJECTIVE: Vital Signs: Temperature 99.2 degrees, pulse 75, respiratory rate 20, blood pressure 148/57, oxygen saturation 100% on room air. HEENT: Head normocephalic. No trauma. PERRLA. Neck: Supple. No JVD. No masses. Central trachea. Chest: Clear to auscultation. No wheezing. No rales. Abdomen: Soft, nontender, protuberant. He has a big old scar without any lesion. Positive bowel sounds. No signs of peritoneal irritation. Extremities: No edema. No clubbing. No cyanosis. Severe pain upon palpation at the level of his left foot, mostly at the level of the first metatarsophalangeal joint and plantar area. Neurological Examination: No changes. Laboratory: Hemoglobin 8.4, hematocrit 25.3. Sodium 144, potassium 3.6, chloride 106, bicarbonate 23, BUN 12, creatinine 1.2, glucose 134, calcium 8. ASSESSMENT AND PLAN: 1. Upper gastrointestinal bleed. This patient already had an endoscopy done 2 days ago that showed prominent esophageal veins, irregular gastroesophageal junction at 40 cm. Also, erosive esophagitis, gastric retention with secretion, erosive gastritis, gastrojejunostomy in the mid gastric body and anastomotic ulcer of around 12 to 15 mm on the jejunal surface with active oozing upon insufflation. The ulcer was cauterized with hemostasis. Also, antral polyps. For now, we will continue following the recommendation of Dr. Varma and Dr. Mcadams. He will be scoped tomorrow. He will have a colonoscopy. 2. Gout flare. I will give him 1 dose of methylprednisolone intravenous and then I will start this patient on colchicine. Today, he will receive 2 doses of colchicine and tomorrow, probably I will put this patient just on once a day. I also asked for a uric acid level. 3. Anemia, likely secondary to blood loss. Status post multiple units of packed RBCs. The last unit of packed RBCs was given yesterday and the hemoglobin improved from 6.9 to 8.4. 4. Chronic kidney disease. As per the patient, his creatinine is around 1.3. His creatinine has been stable at 1.2. 5. Hypokalemia, resolved today. I had stopped his hydrochlorothiazide yesterday and I gave him a dose of potassium. 6. Hypertension. His blood pressure is a little bit elevated but this patient is complaining of pain. Once this pain is better, I will monitor the blood pressure to see if he needs another blood pressure medication. 7. Patient is taking metformin, even though he does not have diabetes. He will continue with this treatment at home. cc: George Rosas MD
[2017-01-06] MEDS ORDERED: DULCOLAX PO ONE ×2 (14:00→21:00)
--- NOTE | 2017-01-06 14:27 | PROGRESS NOTE ---
DATE: 01/06/2017 SUBJECTIVE: The patient denies any visible black stools or blood in the stool today. He did report a dark stool yesterday. He did not complain of foot pain to me but in the chart by Dr. Nails he is complaining of severe left foot pain. He has a history of gout. They are starting prednisone and holding NSAIDs for now. OBJECTIVE: Vital Signs: Temperature 102.2 degrees, pulse 84, respirations 20, blood pressure 157/69. General: The patient is awake and alert. No acute distress. HEENT: Normocephalic, atraumatic. Pupils equal, round, reactive to light. Respiratory: Lung sounds essentially clear bilaterally. Abdomen: Obese, otherwise soft, positive bowel sounds, nontender. DIAGNOSTIC RESULTS: Laboratory. Hematology. Hemoglobin 8.4, hematocrit 25.3. Chemistry. Sodium 144, potassium 3.6, chloride 106, CO2 of 23, BUN 12, creatinine 1.2, glucose 134, uric acid 7.8, calcium 8.0. ASSESSMENT AND PLAN: 1. Anemia. Patient has had an EGD that showed prominent esophageal veins, esophagitis, gastric retention, erosive gastritis with history of gastrojejunostomy in the midgastric body and anastomotic ulcer. The ulcer was cauterized. He has plans for a colonoscopy tomorrow by Dr. Varma. 2. Gout. He is receiving prednisone and started on colchicine. 3. Chronic kidney disease. 4. Hypertension. 5. Fever. He has orders for a CBC tomorrow. He will start his colon prep this afternoon. Plans for colonoscopy by Dr. Varma tomorrow. Further plans will be made according to findings. I have discussed this case with Dr. Mcadams. Dictated by LIDIA Rodriguez for Faiza Varma MD cc: LIDIA Newton MD
[2017-01-06] MEDS ORDERED: MIRALAX PO ONE (16:00)
[2017-01-06] MEDS: SODIUM CHLORIDE 0.9% INJ SCH (17:29)
[2017-01-06] MEDS: PROTONIX IV SCH (17:29)
[2017-01-07] MEDS: CARAFATE LIQUID PO SCH ×4 (02:00→20:01)
[2017-01-07] MEDS: PROTONIX IV SCH ×2 (05:09→17:02)
[2017-01-07 06:43] LABS: MANUAL DIFF NEEDED? NO
[2017-01-07 07:00] LABS: BASO% 0.1 % (0.0-0.8); EOS# 0.01 X1000 (0.0-0.7); EOS% 0.1 % (0.0-10.0); HEMOGLOBIN 7.8 g/dL (14.0-18.0); IMM GRAN# 0.02 X1000 (0.0-0.04); IMM GRAN% 0.2 % (0.0-0.5); LYMPH# 0.94 X1000 (1.2-3.4); LYMPH% 10.1 % (20.5-51.1); MCH 29.2 PG (27-31); MCHC 32.5 g/dL (33-37); MCV 89.9 FL (81-99); MONO# 1.05 X1000 (0.11-0.59); MONO% 11.2 % (1.7-9.3); MPV 10.7 FL (7.4-10.4); NEUT% 78.3 % (42.2-75.2); PLT 155 X1000 (130-400); RBC 2.67 XMIL (4.7-6.1)
[2017-01-07 07:03] LABS: AGAP 12; BUN 12 mg/dL (8-22); CALCIUM 7.9 mg/dL (8.8-10.2); CHLORIDE 105 mmol/L (98-107); COSMO 283; POTASSIUM 3.3 mmol/L (3.5-5.1); SODIUM 141 mmol/L (136-145); TCO2 24 mmol/L (25-35)
[2017-01-07] MEDS ORDERED: DIPRIVAN 1% ONE (08:24)
[2017-01-07] MEDS ORDERED: XYLOCAINE-MPF 2% ONE (08:24)
[2017-01-07] MEDS ORDERED: VERSED ONE (08:24)
[2017-01-07] MEDS ORDERED: COLCRYS PO SCH (09:00)
[2017-01-07] MEDS: MICARDIS PO SCH (09:53)
[2017-01-07] MEDS: SINGULAIR PO SCH (09:54)
[2017-01-07] MEDS: CARDIZEM CD PO SCH ×2 (09:54→20:01)
[2017-01-07] MEDS: PATIENT'S OWN MED PO SCH (09:54)
[2017-01-07] MEDS: TRANDATE PO SCH ×2 (09:54→20:01)
[2017-01-07] MEDS ORDERED: KLOR-CON PO ONE (10:36)
--- NOTE | 2017-01-07 11:18 | PROGRESS NOTE ---
DATE: 01/07/2017 SUBJECTIVE: This patient just came back from colonoscopy. I received a call from Dr. 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 We will monitor his hemoglobin and hematocrit closely. We will get a new 1 at 2 p.m. today and then tomorrow morning. If his hemoglobin and hematocrit continues to the go down, probably this patient will need a capsule endoscopy to look for more AV malformations. In any case, Dr. Varma would like to be notified about the results in the morning. He is still having left foot pain but compared with yesterday is better. We will continue with the colchicine. OBJECTIVE: Vital Signs: Temperature 98.5 degrees, pulse 88, respiratory rate 18, blood pressure 156/69, O2 saturation 99% on room air. HEENT: Head normocephalic. No trauma. PERRLA. Neck: Supple. No JVD. No masses. Central trachea. Chest: Clear to auscultation. No wheezing. No rales. Abdomen: Soft, protuberant. Mildly distended. Positive bowel sounds. He has a big old scar without any lesion or complication. No signs of peritoneal irritation. Extremities: Trace lower extremity edema. No clubbing. No cyanosis. Mild to moderate pain on palpation at the level of the left foot. Mostly at the level of the 1st metatarsophalangeal joint and plantar area. Neurological: Alert and oriented x3. No focal deficits. LABORATORY: WBC 9.3, hemoglobin 7.8, hematocrit 24. Platelets 155,000, sodium 141, potassium 3.3, chloride 105, bicarbonate 24, BUN 12, creatinine 1.1, glucose 126, calcium 7.9. ASSESSMENT AND PLAN: 1. Upper gastrointestinal bleed and also lower gastrointestinal bleed. Today, he had a colonoscopy that Dr. Varma found two AV malformations that were bleeding. They were cauterized. Three days ago this patient had and upper endoscopy that showed prominent esophageal veins, a regular gastroesophageal junction at 7 cm, also erosive esophagitis, gastric retention with secretion, erosive gastritis, gastrojejunostomy in the mid gastric body and anastomotic ulcer of around 12-15 mm on the jejunal surface with active oozing upon insufflation, the ulcer was cauterized with hemostasis, also antral polyps. For now, we will continue following the recommendation of Dr. Varma. 2. Gout flare. This patient received 1 dose of methylprednisolone IV and I started this patient on colchicine twice a day. If he is getting better I think we can decrease the dose of colchicine to once a day. 3. Chronic kidney disease. Uric acid 7.8. 4. Anemia likely secondary to blood loss. He is status multiple units of PRBCs. We are going to get an hemoglobin and hematocrit today and tomorrow. We will monitor this closely. 5. Chronic kidney disease. As per the patient his creatinine is around 1.3. His creatinine here has been stable. 6. Hypokalemia. I stopped his hydrochlorothiazide 2 days ago and have been replacing his potassium. 7. Hypertension. Continue to monitor. Probably we will need to start this patient on another blood pressure medication. 8. Patient is taking metformin even though he does not have diabetes. He will continue with this treatment at home. 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 He had an upper endoscopy done and lower endoscopy with evidence of active bleed. His hemoglobin is still dropping. We will get a new hemoglobin and hematocrit today at 2 p.m. and also tomorrow morning. Dr. Varma would like to be notified about the results in the morning. Please call her so we can be on the same page. If the hemoglobin drops, probably this patient will need a capsule endoscopy and/or a new upper endoscopy. cc: George Rosas MD MTDD
[2017-01-07 14:36] LABS: MANUAL DIFF NEEDED? NO
[2017-01-07 14:44] LABS: BASO% 0.2 % (0.0-0.8); EOS# 0.02 X1000 (0.0-0.7); EOS% 0.2 % (0.0-10.0); HEMATOCRIT 24.8 % (42.0-52.0); HEMOGLOBIN 8.2 g/dL (14.0-18.0); LYMPH# 1.17 X1000 (1.2-3.4); LYMPH% 13.7 % (20.5-51.1); MCH 30.5 PG (27-31); MCHC 33.1 g/dL (33-37); MCV 92.2 FL (81-99); MONO# 1.02 X1000 (0.11-0.59); MPV 10.8 FL (7.4-10.4); NEUT% 73.9 % (42.2-75.2); PLT 164 X1000 (130-400); RBC 2.69 XMIL (4.7-6.1)
[2017-01-07 15:09] LABS: HEMOGLOBIN ELECTROPHORESIS SEE COMMENTS; SICKLEDEX SEE COMMENTS; SICKLEDEX YES
[2017-01-07] MEDS: COLCRYS PO SCH (20:01)
--- NOTE | 2017-01-07 20:16 | OPERATIVE NOTE ---
PROCEDURE DATE : 01/07/2017 REFERRING PHYSICIAN: George Rosas MD PRIMARY CARE PROVIDER: Archie Badillo MD INDICATIONS FOR PROCEDURE: 1. Anemia, progressive. 2. Family history of rectal cancer. 3. Family history of colon cancer. PROCEDURE PERFORMED: Colonoscopy with control of bleeding CONSENT: Informed consent was obtained from the patient prior to the procedure. The risks, benefits, and alternatives were discussed with the patient and his . MEDICATION: The patient received monitored anesthesia care. PERFORMING PHYSICIAN: Faiza Varma MD ASSISTANTS: 1. ST Joshua 2. Betsey Montanez RN 3. Kojo Gutierrez CRNA 4. Abner Benz MD (anesthesia) COMPLICATIONS: There were no complications. ESTIMATED BLOOD LOSS: Less than 1 mL. SPECIMENS REMOVED: None. CECAL INTUBATION TIME: Four minutes. WITHDRAWAL TIME: Eight minutes. PREP QUALITY: Poor. FINDINGS: After sedation was achieved, the pediatric colonoscope was inserted to the terminal ileum. The terminal ileum, ileocecal valve, and appendiceal orifice appeared endoscopically normal. Upon withdrawal, there were scattered AVMs. There were 2 AVMs that required cautery due to active bleeding. There were rare diverticula in the descending and sigmoid colon. The remainder of the colonic mucosa appeared endoscopically normal. In the upper rectum, there were grade 2 internal hemorrhoids. On retroflexed view, there were medium external hemorrhoids. It should be noted that there was dark brown to grayish-black stool in the colonic lumen mixed with green stool. After the exam was complete, the lumen was decompressed and the scope was removed without incident. IMPRESSION: 1. Scattered bleeding and nonbleeding AVMs. 2. Cauterization with control of bleeding of the bleeding AVMs. 3. Rare colonic diverticulosis in the descending and sigmoid colon. 4. Grade 2 internal hemorrhoids. 5. Medium external hemorrhoids. 6. No polyps or masses seen. 7. Darker than anticipated brown to blackish colored stool. RECOMMENDATIONS: 1. Monitor the patient's hemoglobin and hematocrit. If the blood count drops overnight, will consider small bowel enteroscopy. 2. He should undergo an outpatient capsule endoscopy as I suspect he has small bowel AVMs. 3. If small bowel AVMs are found, he will need a double balloon enteroscopy as an outpatient. 4. I will place him on a full liquid diet this afternoon. This evening he may be advanced to a GI soft diet. Over the next 1-2 days I will advance him to a high fiber diet. 5. I will have the patient undergo repeat colonoscopy in 3 years given the family history and the poor bowel prep. 6. Will have the patient return to clinic in 4 weeks to assess interval progress. He will need a CBC prior to his return to clinic. cc: MD George Evans MD Willie Askew, MD
--- NOTE | 2017-01-07 20:32 | PROGRESS NOTE ---
DATE: 01/07/2017 SUBJECTIVE: Since his procedure this morning, the patient reports that his stool has turned from a grayish black color to green. His hemoglobin and hematocrit have stabilized at 8.2 and 24.8. Clinically, he feels better with the exception of foot pain due to gout. From a GI perspective, if his hemoglobin remains stable in the morning, it is reasonable to consider outpatient management. However, if his hemoglobin drops in the morning, we will need to consider further endoscopic intervention. Our plan has been discussed with the patient who is in agreement. cc: MD George Evans MD Willie Askew, MD
[2017-01-08] MEDS: CARAFATE LIQUID PO SCH ×2 (03:04→08:43)
[2017-01-08] MEDS: SODIUM CHLORIDE 0.9% INJ SCH (04:25)
[2017-01-08] MEDS: PROTONIX IV SCH ×2 (04:26→05:29)
[2017-01-08 06:40] LABS: MANUAL DIFF NEEDED? NO
[2017-01-08 06:45] LABS: BASO% 0.3 % (0.0-0.8); EOS# 0.04 X1000 (0.0-0.7); EOS% 0.5 % (0.0-10.0); HEMATOCRIT 25.3 % (42.0-52.0); HEMOGLOBIN 8.2 g/dL (14.0-18.0); LYMPH% 11.7 % (20.5-51.1); MCH 29.2 PG (27-31); MCHC 32.4 g/dL (33-37); MONO% 7.8 % (1.7-9.3); MPV 10.2 FL (7.4-10.4); NEUT% 79.7 % (42.2-75.2); PLT 189 X1000 (130-400); RBC 2.81 XMIL (4.7-6.1)
[2017-01-08 07:02] LABS: AGAP 10; BUN 11 mg/dL (8-22); CALCIUM 7.6 mg/dL (8.8-10.2); CHLORIDE 108 mmol/L (98-107); COSMO 283; POTASSIUM 3.6 mmol/L (3.5-5.1); SODIUM 142 mmol/L (136-145); TCO2 24 mmol/L (25-35)
[2017-01-08 07:43] VITALS: BP 151/69
[2017-01-08] MEDS: SINGULAIR PO SCH (08:42)
[2017-01-08] MEDS: COLCRYS PO SCH (08:42)
[2017-01-08] MEDS: CARDIZEM CD PO SCH (08:42)
[2017-01-08] MEDS: TRANDATE PO SCH (08:43)
[2017-01-08] MEDS: PATIENT'S OWN MED PO SCH (08:43)
[2017-01-08] MEDS: MICARDIS PO SCH (08:43)
[2017-01-08] MEDS ORDERED: PRILOSEC PO SCH (21:00)
--- NOTE | 2017-01-09 12:48 | DISCHARGE SUMMARY ---
ADMISSION DATE: 01/03/2017 DISCHARGE DATE: 01/08/2017 CONSULTATIONS: Dr. Faiza Varma with Gastroenterology. PERTINENT PROCEDURES: 1. Esophagogastroduodenoscopy with control of bleeding and biopsy. 2. Gastric emptying study showed mild delay compatible with gastroparesis. 3. Abdominal ultrasound showed hepatic steatosis, cholelithiasis without evidence of cholecystitis. 4. Colonoscopy with control of bleeding performed by Dr. Varma. DISCHARGE DIAGNOSES: 1. Scattered bleeding and nonbleeding arteriovenous malformations status post cauterization with control of bleeding. Hemoglobin and hematocrit are now stable. Will follow up with Dr. Varma as outpatient and follow a high-fiber diet. 2. Upper GI bleed status post esophagogastroduodenoscopy with control of bleeding. There were prominent esophageal veins, erosive esophagitis, gastric retention, and ulcer was cauterized with hemostasis. The patient will continue proton pump inhibitor and Carafate. 3. Gastroparesis was indicated on gastric emptying study. 4. Gout flare, now stable. 5. Chronic kidney disease, stable. 6. Profound anemia secondary to acute blood loss, now stable. 7. Hypokalemia, resolved. 8. Hypertension. Continue antihypertensive. 9. Acute kidney injury, resolved. 10. Diabetes mellitus type 2. Continue metformin. HOSPITAL COURSE: Mr. Vargas is a 66-year-old male who presented to the ED with complaints of weakness for 2-3 days. He reports that he has been pale in appearance and initially, 6 weeks ago, he had episodes of dark stool, though he had not had any since that time, and one episode of coffee-ground emesis the day prior to his admission. He has not had any abdominal pain. He denies any previous history of GI bleeding or GI complications such as ulcers or diverticulitis. In the ED, he was found to be very anemic with a hemoglobin of 4.9 and a hematocrit of 15, and an elevated creatinine of 1.4. 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 He was initially admitted to the hospital, transfused with 3 units of PRBCs, placed on Protonix IV b.i.d. with a GI consult. He is normally followed by Dr. Cradenas. Dr. Varma was consulted. His hemoglobin and hematocrit were monitored serially. He was given gentle resuscitation with IV fluids. He underwent an EGD with Dr. Varma where she found prominent esophageal veins, erosive gastritis, gastric retention of secretions, and anastomotic ulcer on the duodenal surface with active oozing that was cauterized with hemostasis achieved. She continued with the Protonix and Carafate. He underwent a gastric emptying study that did show mild delayed gastric emptying rate compatible with gastroparesis. He underwent abdominal ultrasound given his prominent esophageal veins that showed hepatic steatosis and cholelithiasis without evidence of cholecystitis. He did have another drop in his hemoglobin and hematocrit. He did receive 2 more units of blood. He received a total of 5 throughout his admission. He then underwent a colonoscopy with Dr. Varma where she found scattered bleeding and nonbleeding AVMs that were cauterized with control of the bleeding AVMs and rare colonic diverticulosis in the descending and sigmoid colon, internal and external hemorrhoids. The patient was monitored overnight for his blood counts, put on a full liquid diet and advanced to a GI soft. He can be discharged home on a high-fiber diet. He can return to see Dr. Varma in the clinic in 4 weeks to assess his interval progress or follow up with Dr. Cardenas in 4 weeks. She would also like him to have a CBC prior to his return to the clinic. Vital signs at the time of his discharge: Temperature is 98.2, heart rate 69, respiratory rate 17, blood pressure 151/69, O2 saturation 90% on room air. Hemoglobin and hematocrit at the time of his discharge were 8.2 and 25. DISCHARGE DIET: High-fiber. DISCHARGE MEDICATIONS: 1. Colcrys 0.6 mg p.o. b.i.d. 2. Cartia XT 240 mg p.o. b.i.d. 3. Gingko biloba 60 mg p.o. each morning. 4. Labetalol 100 mg p.o. b.i.d. 5. Metformin 500 mg two tablets p.o. each morning 6. Singulair 10 mg p.o. each morning. 7. Prilosec 20 mg p.o. b.i.d. 8. Carafate 1 g p.o. q.6 h. 9. Telmisartan 80 mg p.o. each morning. FOLLOWUP: Mr. Vargas is being discharged home. He can follow up with Dr. Varma and/or Dr. Cardenas in 4 weeks. DISCHARGE INSTRUCTIONS: He is to follow the high-fiber diet, continue home medications as instructed. He can return to the ED for any worsening of symptoms. DISCHARGE TIME: 30 minutes. Dictated by LIDIA Cedeño for Ramon Sanchez MD cc: Ramon Sanchez MD
== END 2017-01-08 15:02 | disposition home or self-care (01) ==
LOC: ED 03:22 → SUATTDRO 07:18 → 3N 07:18
PROVIDERS: ATTEND Internal Medicine